=== PATIENT | male | born 1960 | race Caucasian/White ===

== ENCOUNTER 2018-02-27 14:08 | Inpatient (IN) | payer MEDICAID ==
[~2018-02-27] VITALS: Ht 190.5 cm; Wt 96.0 kg
[2018-02-27 15:37] LABS: Alanine Aminotransferase 15 U/L (16-61); Albumin 3.3 g/dL (3.4-5.0); Anion Gap 8 (5-15); Aspartate Aminotransferase 38 U/L (15-37); BUN/Creatinine Ratio 18.4; Blood Urea Nitrogen 25 mg/dL (7-18); Calcium 12.3 mg/dL (8.5-10.1); Carbon Dioxide 26 mmol/L (21-32); Chloride 95 mmol/L (98-107); GFR African American 69 mL/min; GFR Non-African American 57 mL/min; Glucose 131 mg/dL (74-106); Magnesium 1.7 mg/dL (1.6-2.6); Potassium 4.7 mmol/L (3.5-5.1); Sodium 129 mmol/L (136-145)
[2018-02-27 15:42] LABS: Alkaline Phosphatase 89 U/L (45-117); Bilirubin, Total 0.4 mg/dL (0.2-1.0); Total Protein 7.5 g/dL (6.4-8.2)
[2018-02-27 15:43] LABS: Hemoglobin 10.7 g/dL (13.5-17.5); Mean Corpuscular Hemoglobin 26.2 pg (28.0-32.0); Red Blood Cells 4.07 10^6/uL (4.5-5.90); Red Cell Distribution Width 19.6 % (11.8-14.3)
[2018-02-27 15:46] LABS: Hematocrit 32.2 % (41.0-53.0); Mean Corpuscular Hgb Conc. 33.2 g/dL (32.0-36.0); Mean Corpuscular Volume 79.1 fL (80.0-100.0); Platelet Count (auto) 181 10^3/uL (140-450); White Blood Cell 6.3 10^3/uL (4.4-10.8)
[2018-02-27 15:56] LABS: Band Neutrophils % (manual) 0; Basophils % (manual) 0 (0.0-2.0); Blast Cells 0; Eosinophils % (manual) 0 (0-7); Metamyelocytes % 0; Myelocytes % 0; Promyelocytes % 0; Reactive Lymphocytes 0
[2018-02-27] MEDS ORDERED: HYDROcodone-ACET 10/325MG TAB PO ONE (17:00)
[2018-02-27 19:00] LABS: Lymphocytes % (manual) 8 (10.0-50.0); Monocytes % (manual) 20 (0-12)
[2018-02-27 19:39] LABS: Urine Bacteria NONE SEEN /hpf (None Seen); Urine Blood Negative /uL (Negative); Urine WBC 2 /hpf (0 - 3)
[2018-02-27] MEDS ORDERED: diphenhdrAMINE HCL 50 MG/1 ML VL ONE (20:32)
[2018-02-27] MEDS ORDERED: diphenhdrAMINE HCL 50 MG/1 ML VL IV ONE (20:45)
[2018-02-27] MEDS ORDERED: SITA100T7 PO (21:02)
[2018-02-27] MEDS ORDERED: CLON0.1T PO (21:02)
[2018-02-27] MEDS ORDERED: QUET300T23 PO (21:02)
[2018-02-27] MEDS ORDERED: HYDR-4683 PO (21:02)
[2018-02-27] MEDS ORDERED: BUPR100T14 PO (21:02)
[2018-02-27] MEDS ORDERED: CLON1TAB3 PO (21:02)
[2018-02-27] MEDS ORDERED: BUSP15TA60 PO (21:02)
[2018-02-27] MEDS ORDERED: SIMV80TA73 PO (21:02)
[2018-02-27] MEDS ORDERED: PAR20T PO (21:02)
[2018-02-27] MEDS ORDERED: CARB200T4 PO (21:02)
[2018-02-27] MEDS ORDERED: GEMF600T3 PO (21:02)
[2018-02-27] MEDS: SODIUM CHLORIDE 0.9% 1,000 ML IV SCH (21:18)
[2018-02-27 21:28] LABS: INR 0.98 (0.9-1.15); Partial Thromboplastin Time 30.8 sec (22.64-33.71); Prothrombin Time 10.7 sec (9.37-12.3)
[2018-02-27] MEDS ORDERED: TEMAZEPAM 15 MG CAP PO PRN (21:30)
[2018-02-27] MEDS ORDERED: NITROGLYCERIN 0.4 MG SL TAB SL PRN (21:30)
[2018-02-27] MEDS ORDERED: ONDANSETRON HCL 4 MG/2 ML VIAL IV PRN (21:30)
[2018-02-27] MEDS ORDERED: MORPHINE SULFATE 4 MG/ML SYR/VIAL IV PRN (21:30)
[2018-02-27] MEDS ORDERED: DEXTROSE (50%) 50ML SYRG IV PRN (21:30)
[2018-02-27] MEDS ORDERED: DOCUSATE SOD 100 MG CAP PO PRN (21:30)
[2018-02-27] MEDS ORDERED: ACETAMINOPHEN 325 MG TAB PO PRN (21:30)
[2018-02-27] MEDS: FAMOTIDINE 20 MG TAB PO SCH (22:28)
[2018-02-27] MEDS: ATORVASTATIN 20 MG TAB PO SCH (22:28)
[2018-02-27] MEDS: carBAMazepine 200 MG TAB PO SCH (22:28)
[2018-02-27] MEDS: HYDROcodone-ACET 5/325MG TAB PO PRN (22:43)
[2018-02-27] MEDS: clonazePAM 0.5 MG TAB PO PRN (22:43)
[2018-02-28] MEDS: ACCU-CHEK COMFORT CURVE STRIP VI SCH ×4 (00:24→18:27)
[2018-02-28] MEDS ORDERED: QUEtiapine FUMARATE 100 MG TAB PO ONE (00:45)
[2018-02-28 05:10] LABS: Hemoglobin 11.2 g/dL (13.5-17.5)
[2018-02-28 05:14] LABS: Mean Corpuscular Hemoglobin 26.6 pg (28.0-32.0); Mean Corpuscular Hgb Conc. 33.9 g/dL (32.0-36.0); Mean Corpuscular Volume 78.6 fL (80.0-100.0); Platelet Count (auto) 171 10^3/uL (140-450); Red Cell Distribution Width 19.6 % (11.8-14.3); White Blood Cell 6.4 10^3/uL (4.4-10.8)
[2018-02-28 05:18] LABS: Blast Cells 0; Eosinophils % (manual) 0 (0-7); Metamyelocytes % 0; Myelocytes % 0; Promyelocytes % 0; Reactive Lymphocytes 0
[2018-02-28] MEDS: cloNIDine HCL 0.1 MG TAB PO PRN (05:29)
[2018-02-28 05:31] LABS: Calcium 12.6 mg/dL (8.5-10.1); Potassium 4.2 mmol/L (3.5-5.1)
[2018-02-28 05:34] LABS: Albumin 3.3 g/dL (3.4-5.0); BUN/Creatinine Ratio 21.5
[2018-02-28 05:37] LABS: Bilirubin, Total 0.4 mg/dL (0.2-1.0); Total Protein 7.7 g/dL (6.4-8.2)
[2018-02-28] MEDS: InsuLIN REG 1unit/0.01ml Soln (100units/ml) SC SCH ×4 (06:00→18:27)
[2018-02-28] MEDS: LEVOTHYROXINE SODIUM 50 MCG TAB PO SCH (06:30)
[2018-02-28] MEDS: buPROPion HCL 75 MG TAB PO SCH ×2 (06:30→22:00)
[2018-02-28 06:31] LABS: Band Neutrophils % (manual) 4; Basophils % (manual) 1 (0.0-2.0); Lymphocytes % (manual) 3 (10.0-50.0); Monocytes % (manual) 15 (0-12)
[2018-02-28 08:39] VITALS: BP 126/87
[2018-02-28] MEDS: SODIUM CHLORIDE 0.9% 1,000 ML IV SCH ×3 (10:05→18:50)
[2018-02-28] MEDS: carBAMazepine 200 MG TAB PO SCH ×2 (10:11→22:00)
[2018-02-28] MEDS: FAMOTIDINE 20 MG TAB PO SCH ×2 (10:12→22:00)
[2018-02-28] MEDS: DILTIAZEM HCL 120MG ER CAP PO SCH (10:13)
[2018-02-28] MEDS: ENOXAPARIN SOD 40 MG/0.4 ML SYRINGE SC SCH (10:15)
[2018-02-28] MEDS: HYDROcodone-ACET 5/325MG TAB PO PRN (13:15)
[2018-02-28] MEDS ORDERED: PAMIDRONATE DISODIUM 90 MG in SOD CHL 0.45% 1,000 ML IV ONE (14:00)
[2018-02-28 15:25] LABS: Potassium 4.6 mmol/L (3.5-5.1)
[2018-02-28 15:31] LABS: Calcium 13.1 mg/dL (8.5-10.1)
[2018-02-28] MEDS: clonazePAM 0.5 MG TAB PO PRN (17:12)
[2018-02-28] MEDS ORDERED: HALOPERIDOL LACTATE 5 MG/ML INJ VIAL IM PRN (17:45)
[2018-02-28 19:58] LABS: Folate (Folic Acid) 11.5 ng/mL (5.38-24)
[2018-02-28 20:35] VITALS: BP 150/88
[2018-02-28 22:00] VITALS: BP 150/88
[2018-02-28] MEDS: ATORVASTATIN 20 MG TAB PO SCH (22:00)
[2018-02-28] MEDS ORDERED: D5W 5% IV SCH (22:00)
[2018-02-28] MEDS ORDERED: QUEtiapine FUMARATE 100 MG TAB PO SCH (22:00)
[2018-02-28] MEDS ORDERED: DEXAMETHASONE IV SCH (22:00)
[2018-02-28] MEDS ORDERED: LORazepam 2MG/ML-1ML VIAL IV ONE (22:15)
[2018-02-28] MEDS: DEXAMETHASONE SOD PHOS 10MG/1ML VIAL INJ IV SCH (22:16)
[2018-03-01] MEDS: SODIUM CHLORIDE 0.9% 1,000 ML IV SCH ×3 (03:09→19:50)
[2018-03-01 05:00] VITALS: BP 188/98
[2018-03-01 05:40] LABS: Basophils # (auto) 0 uL; Basophils % (auto) 0.1 % (0.0-2.0); Eosinophils # (auto) 0 uL; Mean Corpuscular Volume 78.9 fL (80.0-100.0); Neutrophils % (auto) 86.6 % (37.0-80.0); White Blood Cell 6.1 10^3/uL (4.4-10.8)
[2018-03-01 05:42] LABS: Eosinophils % (auto) 0.1 % (0.0-7.0); Hematocrit 36.9 % (41.0-53.0); Hemoglobin 12.3 g/dL (13.5-17.5); Lymphocytes # (auto) 0.2 uL; Lymphocytes % (auto) 2.6 % (10.0-50.0); Mean Corpuscular Hemoglobin 26.4 pg (28.0-32.0); Mean Corpuscular Hgb Conc. 33.4 g/dL (32.0-36.0); Monocytes # (auto) 0.6 uL; Monocytes % (auto) 10.6 % (0.0-12.0); Neutrophils # (auto) 5.2 uL; Nucleated Red Blood Cells % 0.2 %; Platelet Count (auto) 203 10^3/uL (140-450); Red Blood Cells 4.68 10^6/uL (4.5-5.90); Red Cell Distribution Width 19.5 % (11.8-14.3)
[2018-03-01 06:17] LABS: BUN/Creatinine Ratio 22.6; Potassium 4.4 mmol/L (3.5-5.1)
[2018-03-01] MEDS: buPROPion HCL 75 MG TAB PO SCH ×2 (06:17→22:16)
[2018-03-01] MEDS: LEVOTHYROXINE SODIUM 50 MCG TAB PO SCH (06:17)
[2018-03-01] MEDS: ACCU-CHEK COMFORT CURVE STRIP VI SCH ×4 (06:17→18:00)
[2018-03-01] MEDS: InsuLIN REG 1unit/0.01ml Soln (100units/ml) SC SCH ×4 (06:17→18:00)
[2018-03-01] MEDS: cloNIDine HCL 0.1 MG TAB PO PRN (06:19)
[2018-03-01 06:35] LABS: Calcium 13.8 mg/dL (8.5-10.1)
[2018-03-01 08:00] VITALS: BP 177/105
[2018-03-01] MEDS: ENOXAPARIN SOD 40 MG/0.4 ML SYRINGE SC SCH (10:02)
[2018-03-01] MEDS: DEXAMETHASONE SOD PHOS 10MG/1ML VIAL INJ IV SCH ×2 (10:02→22:13)
[2018-03-01] MEDS: carBAMazepine 200 MG TAB PO SCH ×2 (10:03→22:16)
[2018-03-01] MEDS: clonazePAM 0.5 MG TAB PO PRN (10:03)
[2018-03-01] MEDS: FAMOTIDINE 20 MG TAB PO SCH ×2 (10:03→22:15)
[2018-03-01] MEDS: DILTIAZEM HCL 120MG ER CAP PO SCH (10:04)
[2018-03-01] MEDS ORDERED: FUROSEMIDE 100 MG/10ML VIAL IV ONE ×2 (12:00→12:15)
[2018-03-01] MEDS ORDERED: cloNIDine HCL 0.1 MG TAB PO PRN (12:15)
[2018-03-01] MEDS: CALCITONIN INJECTABLE (200U/ML) 2ML VIAL SC SCH ×2 (13:17→22:00)
[2018-03-01] MEDS ORDERED: BUPR150T6 PO (13:32)
[2018-03-01] MEDS ORDERED: CARB200T4 PO ×3 (13:32→13:36)
[2018-03-01] MEDS ORDERED: QUET300T23 PO ×2 (13:32)
[2018-03-01 17:00] VITALS: BP 169/110
[2018-03-01 20:33] LABS: Alcohol, Urine < 3.0 mg/dL (0-5); Amphetamine Screen, Urine NEGATIVE (NEGATIVE); Barbiturate Scree,Urine NEGATIVE (NEGATIVE); Benzodiazephine Screen, Urine NEGATIVE (NEGATIVE); Cannabinoid Screen, Urine NEGATIVE (NEGATIVE); Cocaine Screen, Urine NEGATIVE (NEGATIVE); Opiate Scree,Urine NEGATIVE (NEGATIVE); Phencyclidine Screen, Urine NEGATIVE (NEGATIVE)
[2018-03-01] MEDS: QUETIAPINE 300 MG PO SCH (22:00)
[2018-03-01] MEDS: ATORVASTATIN 20 MG TAB PO SCH (22:13)
[2018-03-01] MEDS: clonazePAM 0.5 MG TAB PO SCH (22:14)
[2018-03-01] MEDS: busPIRone HCL 10 MG TAB PO SCH (22:15)
[2018-03-01] MEDS: PARoxetine 20 MG TAB PO SCH (22:17)
[2018-03-02] MEDS: InsuLIN REG 1unit/0.01ml Soln (100units/ml) SC SCH ×4 (00:56→18:26)
[2018-03-02] MEDS: SODIUM CHLORIDE 0.9% 1,000 ML IV SCH ×3 (04:10→21:00)
[2018-03-02] MEDS: ACCU-CHEK COMFORT CURVE STRIP VI SCH ×4 (06:00→18:27)
[2018-03-02 06:43] LABS: Calcium 11.5 mg/dL (8.5-10.1); Potassium 3.5 mmol/L (3.5-5.1)
[2018-03-02] MEDS: buPROPion HCL 75 MG TAB PO SCH ×3 (06:52→23:30)
[2018-03-02] MEDS: busPIRone HCL 10 MG TAB PO SCH ×3 (06:52→23:30)
[2018-03-02] MEDS: LEVOTHYROXINE SODIUM 50 MCG TAB PO SCH (06:53)
[2018-03-02 08:00] VITALS: BP 150/99
[2018-03-02 10:00] VITALS: BP 150/99
[2018-03-02] MEDS ORDERED: QUETIAPINE 300 MG PO SCH (10:00)
[2018-03-02] MEDS ORDERED: buPROPion HCL 100 MG TAB PO SCH (10:00)
[2018-03-02] MEDS: DEXAMETHASONE SOD PHOS 10MG/1ML VIAL INJ IV SCH ×2 (10:24→22:00)
[2018-03-02] MEDS: DILTIAZEM HCL 120MG ER CAP PO SCH (10:28)
[2018-03-02] MEDS: carBAMazepine 200 MG TAB PO SCH ×2 (10:29→23:30)
[2018-03-02] MEDS: FAMOTIDINE 20 MG TAB PO SCH ×2 (10:30→23:30)
[2018-03-02] MEDS: clonazePAM 0.5 MG TAB PO SCH ×2 (10:30→23:30)
[2018-03-02] MEDS: ENOXAPARIN SOD 40 MG/0.4 ML SYRINGE SC SCH (10:30)
[2018-03-02] MEDS: CALCITONIN INJECTABLE (200U/ML) 2ML VIAL SC SCH ×2 (10:31→23:00)
[2018-03-02] MEDS ORDERED: FUROSEMIDE 20 MG/2 ML VIAL IV ONE (11:15)
[2018-03-02] MEDS ORDERED: POTASSIUM CHL 20 Meq TABLET PO ONE (11:15)
[2018-03-02 17:00] VITALS: BP 137/99
[2018-03-02] MEDS ORDERED: LORazepam 2MG/ML-1ML VIAL IV PRN (19:15)
[2018-03-02 22:00] VITALS: BP 143/95
[2018-03-02] MEDS: QUETIAPINE 300 MG PO SCH (23:30)
[2018-03-02] MEDS: ATORVASTATIN 20 MG TAB PO SCH (23:30)
[2018-03-02] MEDS: PARoxetine 20 MG TAB PO SCH (23:30)
[2018-03-03 05:00] VITALS: BP 137/89
[2018-03-03] MEDS: SODIUM CHLORIDE 0.9% 1,000 ML IV SCH ×3 (05:10→22:00)
[2018-03-03] MEDS: buPROPion HCL 75 MG TAB PO SCH ×2 (06:00→20:52)
[2018-03-03] MEDS: ACCU-CHEK COMFORT CURVE STRIP VI SCH ×4 (06:00→17:17)
[2018-03-03] MEDS: InsuLIN REG 1unit/0.01ml Soln (100units/ml) SC SCH ×4 (06:00→17:18)
[2018-03-03] MEDS: busPIRone HCL 10 MG TAB PO SCH ×5 (06:00→20:44)
[2018-03-03 06:24] LABS: White Blood Cell 6.1 10^3/uL (4.4-10.8)
[2018-03-03 06:26] LABS: Hematocrit 34.3 % (41.0-53.0); Hemoglobin 11.5 g/dL (13.5-17.5); Mean Corpuscular Hgb Conc. 33.6 g/dL (32.0-36.0); Mean Corpuscular Volume 78.1 fL (80.0-100.0); Platelet Count (auto) 204 10^3/uL (140-450); Red Blood Cells 4.39 10^6/uL (4.5-5.90); Red Cell Distribution Width 19.4 % (11.8-14.3)
[2018-03-03 06:27] LABS: Mean Corpuscular Hemoglobin 26.4 pg (28.0-32.0)
[2018-03-03 06:28] LABS: Basophils % (manual) 0 (0.0-2.0); Blast Cells 0; Metamyelocytes % 0; Myelocytes % 0; Promyelocytes % 0; Reactive Lymphocytes 0
[2018-03-03 06:30] LABS: BUN/Creatinine Ratio 33.3; Calcium 10.6 mg/dL (8.5-10.1); Potassium 3.7 mmol/L (3.5-5.1)
[2018-03-03] MEDS: LEVOTHYROXINE SODIUM 50 MCG TAB PO SCH (06:52)
[2018-03-03 08:00] VITALS: BP 138/82
[2018-03-03] MEDS: ENOXAPARIN SOD 40 MG/0.4 ML SYRINGE SC SCH (09:25)
[2018-03-03] MEDS: DEXAMETHASONE SOD PHOS 10MG/1ML VIAL INJ IV SCH ×2 (09:25→23:34)
[2018-03-03] MEDS: carBAMazepine 200 MG TAB PO SCH ×2 (09:26→20:50)
[2018-03-03] MEDS: clonazePAM 0.5 MG TAB PO SCH ×2 (09:26→20:46)
[2018-03-03] MEDS: FAMOTIDINE 20 MG TAB PO SCH ×2 (09:26→20:49)
[2018-03-03] MEDS: DILTIAZEM HCL 120MG ER CAP PO SCH (09:27)
[2018-03-03] MEDS ORDERED: MORPHINE SULFATE 4 MG/ML SYR/VIAL IV PRN (09:45)
[2018-03-03] MEDS: DOCUSATE SOD 100 MG CAP PO SCH ×2 (09:59→20:45)
[2018-03-03] MEDS: buPROPion HCL 100 MG TAB PO SCH (10:00)
[2018-03-03] MEDS: QUETIAPINE 300 MG PO SCH ×2 (10:01→20:42)
[2018-03-03 11:00] LABS: Band Neutrophils % (manual) 1; Eosinophils % (manual) 1 (0-7); Lymphocytes % (manual) 7 (10.0-50.0); Monocytes % (manual) 15 (0-12)
[2018-03-03 12:00] VITALS: BP 146/94
[2018-03-03 16:53] VITALS: BP 140/104
[2018-03-03 17:46] VITALS: BP 140/91
[2018-03-03] MEDS: HYDROcodone-ACET 5/325MG TAB PO PRN (17:47)
[2018-03-03] MEDS: ATORVASTATIN 20 MG TAB PO SCH (20:47)
[2018-03-03] MEDS: PARoxetine 20 MG TAB PO SCH (20:49)
[2018-03-03 22:00] VITALS: BP 138/95
[2018-03-03] MEDS: Boost Glucose Control 8 Ounces PO SCH (22:00)
[2018-03-04 05:00] VITALS: BP 134/92
[2018-03-04] MEDS: InsuLIN REG 1unit/0.01ml Soln (100units/ml) SC SCH ×4 (05:09→17:47)
[2018-03-04] MEDS: ACCU-CHEK COMFORT CURVE STRIP VI SCH ×4 (05:10→17:47)
[2018-03-04] MEDS: busPIRone HCL 10 MG TAB PO SCH ×3 (05:21→21:13)
[2018-03-04] MEDS: QUETIAPINE 300 MG PO SCH ×2 (05:22→21:11)
[2018-03-04] MEDS: LEVOTHYROXINE SODIUM 50 MCG TAB PO SCH (05:22)
[2018-03-04 09:27] VITALS: BP 150/83
[2018-03-04] MEDS: FAMOTIDINE 20 MG TAB PO SCH ×2 (10:04→21:13)
[2018-03-04] MEDS: buPROPion HCL 100 MG TAB PO SCH (10:04)
[2018-03-04] MEDS: clonazePAM 0.5 MG TAB PO SCH ×2 (10:04→21:12)
[2018-03-04] MEDS: DILTIAZEM HCL 120MG ER CAP PO SCH (10:05)
[2018-03-04] MEDS: DEXAMETHASONE SOD PHOS 10MG/1ML VIAL INJ IV SCH ×2 (10:05→21:11)
[2018-03-04] MEDS: Boost Glucose Control 8 Ounces PO SCH ×2 (10:06→21:17)
[2018-03-04] MEDS: ENOXAPARIN SOD 40 MG/0.4 ML SYRINGE SC SCH (10:06)
[2018-03-04] MEDS: carBAMazepine 200 MG TAB PO SCH ×2 (10:06→21:14)
[2018-03-04] MEDS: DOCUSATE SOD 100 MG CAP PO SCH ×2 (10:06→21:16)
[2018-03-04 10:58] LABS: BUN/Creatinine Ratio 37.2; Potassium 3.7 mmol/L (3.5-5.1)
[2018-03-04 14:26] VITALS: BP 136/88
[2018-03-04 17:35] VITALS: BP 158/92
[2018-03-04] MEDS: buPROPion HCL 75 MG TAB PO SCH (17:46)
[2018-03-04] MEDS: SODIUM CHLORIDE 0.9% 1,000 ML IV SCH ×2 (17:47→23:28)
[2018-03-04] MEDS: PARoxetine 20 MG TAB PO SCH (21:15)
[2018-03-04] MEDS: ATORVASTATIN 20 MG TAB PO SCH (21:16)
[2018-03-04 22:00] VITALS: BP 153/90
[2018-03-05] MEDS: ACCU-CHEK COMFORT CURVE STRIP VI SCH ×4 (00:02→18:23)
[2018-03-05 04:47] VITALS: BP 131/90
[2018-03-05] MEDS: LEVOTHYROXINE SODIUM 50 MCG TAB PO SCH (05:45)
[2018-03-05] MEDS: busPIRone HCL 10 MG TAB PO SCH ×3 (05:45→21:33)
[2018-03-05] MEDS: QUETIAPINE 300 MG PO SCH ×2 (05:45→21:35)
[2018-03-05 05:58] LABS: BUN/Creatinine Ratio 32.5; Calcium 9.6 mg/dL (8.5-10.1); Potassium 4.1 mmol/L (3.5-5.1)
[2018-03-05] MEDS: InsuLIN REG 1unit/0.01ml Soln (100units/ml) SC SCH ×4 (05:59→18:23)
[2018-03-05 09:00] VITALS: BP 145/98
[2018-03-05] MEDS: DILTIAZEM HCL 120MG ER CAP PO SCH (09:49)
[2018-03-05] MEDS: DOCUSATE SOD 100 MG CAP PO SCH ×2 (09:49→21:32)
[2018-03-05] MEDS: FAMOTIDINE 20 MG TAB PO SCH ×2 (09:50→21:35)
[2018-03-05] MEDS: carBAMazepine 200 MG TAB PO SCH ×2 (09:50→21:33)
[2018-03-05] MEDS: clonazePAM 0.5 MG TAB PO SCH ×2 (09:51→21:35)
[2018-03-05] MEDS: buPROPion HCL 100 MG TAB PO SCH (09:51)
[2018-03-05] MEDS: Boost Glucose Control 8 Ounces PO SCH ×2 (09:53→21:36)
[2018-03-05] MEDS: DEXAMETHASONE SOD PHOS 10MG/1ML VIAL INJ IV SCH ×2 (09:56→21:35)
[2018-03-05] MEDS: ENOXAPARIN SOD 40 MG/0.4 ML SYRINGE SC SCH (09:57)
[2018-03-05] MEDS: HYDROcodone-ACET 5/325MG TAB PO PRN ×2 (10:10→17:30)
[2018-03-05 13:00] VITALS: BP 120/76
[2018-03-05] MEDS: SODIUM CHLORIDE 0.9% 1,000 ML IV SCH (15:18)
[2018-03-05 17:00] VITALS: BP 158/105
[2018-03-05] MEDS: buPROPion HCL 75 MG TAB PO SCH (17:30)
[2018-03-05] MEDS: PARoxetine 20 MG TAB PO SCH (21:34)
[2018-03-05 21:58] VITALS: BP 151/89
[2018-03-06] MEDS: SODIUM CHLORIDE 0.9% 1,000 ML IV SCH (00:01)
[2018-03-06] MEDS: ACCU-CHEK COMFORT CURVE STRIP VI SCH ×3 (00:01→12:03)
[2018-03-06 05:28] VITALS: BP 136/88
[2018-03-06] MEDS: busPIRone HCL 10 MG TAB PO SCH (05:53)
[2018-03-06] MEDS: QUETIAPINE 300 MG PO SCH (05:54)
[2018-03-06] MEDS: LEVOTHYROXINE SODIUM 50 MCG TAB PO SCH (05:54)
[2018-03-06] MEDS: InsuLIN REG 1unit/0.01ml Soln (100units/ml) SC SCH ×3 (06:01→12:00)
[2018-03-06 07:36] VITALS: BP 159/98
[2018-03-06] MEDS: Boost Glucose Control 8 Ounces PO SCH (10:00)
[2018-03-06] MEDS: ENOXAPARIN SOD 40 MG/0.4 ML SYRINGE SC SCH (10:00)
[2018-03-06] MEDS: DOCUSATE SOD 100 MG CAP PO SCH (10:51)
[2018-03-06] MEDS: DEXAMETHASONE SOD PHOS 10MG/1ML VIAL INJ IV SCH (10:51)
[2018-03-06] MEDS: DILTIAZEM HCL 120MG ER CAP PO SCH (10:52)
[2018-03-06] MEDS: buPROPion HCL 100 MG TAB PO SCH (10:53)
[2018-03-06] MEDS: clonazePAM 0.5 MG TAB PO SCH (10:53)
[2018-03-06] MEDS: FAMOTIDINE 20 MG TAB PO SCH (10:53)
[2018-03-06] MEDS: carBAMazepine 200 MG TAB PO SCH (10:53)
[2018-03-06 12:04] VITALS: BP 159/98
[2018-03-06 13:00] VITALS: BP 189/103
== END 2018-03-06 14:15 | disposition hospice, home (50) | DRG 136 ==
LOC: ER 14:08 → TELE 14:09 → TELE-WESTW 02-28 21:09 → WEST WING 03-03 23:31
PROVIDERS: ADMIT Nurse Practitioner; ATTEND Internal Medicine
DX: C34.91 Malignant neoplasm of unspecified part of right bronchus or lung (principal); G93.41 Metabolic encephalopathy; C79.51 Secondary malignant neoplasm of bone; C78.7 Secondary malignant neoplasm of liver and intrahepatic bile duct; C79.31 Secondary malignant neoplasm of brain; E44.1 Mild protein-calorie malnutrition; K72.90 Hepatic failure, unspecified without coma; E87.1 Hypo-osmolality and hyponatremia; E83.51 Hypocalcemia; E83.52 Hypercalcemia; F20.9 Schizophrenia, unspecified; F31.9 Bipolar disorder, unspecified; D63.8 Anemia in other chronic diseases classified elsewhere; E03.9 Hypothyroidism, unspecified; E11.9 Type 2 diabetes mellitus without complications; E66.9 Obesity, unspecified; Z68.26 Body mass index [BMI] 26.0-26.9, adult; E78.5 Hyperlipidemia, unspecified; I10 Essential (primary) hypertension; Z80.1 Family history of malignant neoplasm of trachea, bronchus and lung; G89.29 Other chronic pain; Z79.899 Other long term (current) drug therapy; G47.00 Insomnia, unspecified; K59.00 Constipation, unspecified; F41.9 Anxiety disorder, unspecified; C34.92 Malignant neoplasm of unspecified part of left bronchus or lung; Z72.0 Tobacco use; Z66 Do not resuscitate; Z51.5 Encounter for palliative care
CPT/HCPCS: 36415; 70450; 71045; 74176; 78306; 80048; 80053; 80307; 81001; 82140; 82164; 82607; 82746; 82962; 83605; 83735; 83880; 83970; 84443; 84484; 85007; 85025; 85027; 85379; 85610; 85730; 87040; 87081; 93005; 95819; 96372; 96374; 96375; 97110; 97116; 97530; A4565; J1100; J1815; J7060